=== PATIENT | female | born 1970 | race Two or more races ===

== ENCOUNTER 2023-06-15 18:23 | Inpatient (IN) | payer OTHER ==
[~2023-06-15] VITALS: Ht 152.4 cm; Wt 68.0 kg
[2023-06-15] MEDS ORDERED: METFORMIN (18:41)
[2023-06-15] MEDS ORDERED: ONDANSETRON 4 MG/2 ML VIAL ONE ×2 (19:28→19:55)
[2023-06-15 19:33] LABS: BASOPHILS # (AUTO) 0.2 K/UL (0.0-0.2); BASOPHILS % (AUTO) 2.3 % (0.0-2.0); EOSINOPHILS # (AUTO) 0.1 K/uL (0.0-0.7); EOSINOPHILS % (AUTO) 1.2 % (0.0-7.0); HEMATOCRIT 38.4 % (31.2-41.9); HEMOGLOBIN 13.1 g/dL (10.9-14.3); LYMPHOCYTES # (AUTO) 1.5 K/uL (0.8-4.8); LYMPHOCYTES % (AUTO) 20.8 % (20.5-51.5); MEAN CORPUSCULAR HEMOGLOBIN 30.3 uug (24.7-32.8); MEAN CORPUSCULAR HGB CONC 34 g/dL (32.3-35.6); MONOCYTES # (AUTO) 0.2 K/uL (0.1-1.30); MONOCYTES % (AUTO) 3.2 % (0.0-11.0); NEUTROPHILS # (AUTO) 5.3 K/uL (1.8-8.9); NEUTROPHILS % (AUTO) 72.5 % (38.5-71.5); PLATELET COUNT (AUTO) 260 K/uL (179-408); RED BLOOD CELL COUNT(AUTO) 4.32 MIL/uL (3.63-4.92); RED CELL DISTRIBUTION WIDTH 13.7 % (12.3-17.7); WHITE BLOOD COUNT (AUTO) 7.3 K/uL (3.8-11.8)
[2023-06-15 19:36] LABS: DIFFERENTIAL COMMENT 1
[2023-06-15 19:38] LABS: *BILIRUBIN,URIN NEGATIVE (NEGATIVE); *BLOOD, URINE NEGATIVE (NEGATIVE); *KETONES,URINE NEGATIVE (NEGATIVE); *PROTEIN,URINE NEGATIVE (NEGATIVE); *UROBILINOGEN,URINE 0.2 E.U./dl (NORMAL); LEUKOCYTE ESTERASE ,URINE NEGATIVE (NEGATIVE); NITRITE, URINE POSITIVE (NEGATIVE); PH,URINE 5.5 (5.0-8.0)
[2023-06-15 19:47] LABS: *CLARITY,URINE SLIGHTLY HAZY (CLEAR); *COLOR,URINE LIGHT YELLOW (YELLOW); UGLUCOSE 2+ (NEGATIVE)
[2023-06-15] MEDS: IV NORMAL SALINE 1000 ML BAG IV ONE (19:50)
[2023-06-15] MEDS: ONDANSETRON 4 MG/2 ML VIAL IV ONE ×2 (19:50→19:57)
[2023-06-15] MEDS ORDERED: CEFTRIAXONE /D5W 50ML IVPB **ER PYXIS IV ONE (19:51)
[2023-06-15] MEDS: CEFTRIAXONE 1 G in IV DEXTROSE 5% 50 ML IV ONE (19:54)
[2023-06-15 19:58] LABS: CALCIUM 8.8 mg/dL (8.5-10.1); CARBON DIOXIDE 25 mmol/L (21-32); CHLORIDE 102 mmol/L (98-107); CREATININE 0.8 mg/dL (0.6-1.3); GLUCOSE 254 mg/dL (74-106); POTASSIUM 4.5 mmol/L (3.5-5.1); SODIUM SERUM 138 mmol/L (136-145); UREA NITROGEN, BLOOD 18 mg/dL (7-18)
[2023-06-15 20:00] LABS: LACTIC ACID 2.8 mmol/L (0.4-2.0)
[2023-06-15 20:07] LABS: ALANINE AMINOTRANSFERASE 23 U/L (14-59); ALBUMIN 2.7 g/dL (3.4-5.0); ALKALINE PHOSPHATASE 190 U/L (50-136); ASPARTATE AMINOTRANSFERASE 11 U/L (15-37); BILIRUBIN,DIRECT 0.1 mg/dL (0.0-0.2); BILIRUBIN,TOTAL 0.4 mg/dL (0.2-1.0); NT-PRO BNP 160 pg/mL (0-125); TOTAL PROTEIN, SERUM 7.9 g/dL (6.4-8.2)
[2023-06-15 20:09] LABS: BACTERIA,URINE MODERATE /HPF (NONE SEEN); SQUAMOUS EPITHELIAL CELL,UR MODERATE /HPF (NONE SEEN); WBC,URINE 0-3 /HPF (0-3); YEAST,URINE FEW /HPF (NONE SEEN)
[2023-06-15] MEDS ORDERED: METOCLOPRAMIDE HCL 10 MG/2 ML VIAL ONE (20:09)
[2023-06-15] MEDS: METOCLOPRAMIDE HCL 10 MG/2 ML VIAL IV ONE (20:23)
[2023-06-15] MEDS ORDERED: ACETAMINOPHEN ES 500 MG TABLET ONE (20:53)
[2023-06-15] MEDS ORDERED: MORPHINE SULFATE 4 MG/1 ML DISP.SYRIN ONE (20:53)
[2023-06-15] MEDS: MORPHINE SULFATE 2 MG/1 ML DISP.SYRIN IV ONE (20:57)
[2023-06-15] MEDS: ACETAMINOPHEN 325 MG TABLET PO ONE (20:57)
[2023-06-15] MEDS ORDERED: ONDANSETRON 4 MG/2 ML VIAL IV PRN (22:30)
[2023-06-15] MEDS ORDERED: MAGNESIUM HYDROXIDE 30 ML LIQUID UDC PO PRN (22:30)
[2023-06-15] MEDS ORDERED: REMEDY ESSENTIAL ZINC PASTE 113 GM TP PRN (22:30)
[2023-06-15] MEDS ORDERED: DEXTROSE 50% 50 ML DISP.SYRIN IV PRN (22:30)
[2023-06-15] MEDS: IV NS 1000 ML 1,000 ML IV PRN (23:11)
[2023-06-16] VITALS: BP 107/52; TEMP 99.6; O2SAT 93
[2023-06-16 04:00] VITALS: BP 108/61; TEMP 97.9; O2SAT 98
[2023-06-16] MEDS: BLOOD SUGAR DIAGNOSTIC 1 EACH STRIP VI SCH (06:36)
[2023-06-16 07:17] LABS: BASOPHILS % (AUTO) 0.5 % (0.0-2.0); EOSINOPHILS # (AUTO) 0.1 K/uL (0.0-0.7); EOSINOPHILS % (AUTO) 0.7 % (0.0-7.0); HEMATOCRIT 31.7 % (31.2-41.9); HEMOGLOBIN 10.9 g/dL (10.9-14.3); LYMPHOCYTES # (AUTO) 2.3 K/uL (0.8-4.8); MEAN CORPUSCULAR HEMOGLOBIN 30.4 uug (24.7-32.8); MEAN CORPUSCULAR HGB CONC 34 g/dL (32.3-35.6); MEAN CORPUSCULAR VOLUME 88.4 fL (75.5-95.3); MONOCYTES # (AUTO) 0.6 K/uL (0.1-1.30); MONOCYTES % (AUTO) 7.7 % (0.0-11.0); NEUTROPHILS # (AUTO) 5.4 K/uL (1.8-8.9); NEUTROPHILS % (AUTO) 64.1 % (38.5-71.5); PLATELET COUNT (AUTO) 232 K/uL (179-408); RED BLOOD CELL COUNT(AUTO) 3.59 MIL/uL (3.63-4.92); RED CELL DISTRIBUTION WIDTH 13.6 % (12.3-17.7); WHITE BLOOD COUNT (AUTO) 8.4 K/uL (3.8-11.8)
[2023-06-16 07:31] LABS: CALCIUM 7.6 mg/dL (8.5-10.1); CREATININE 0.5 mg/dL (0.6-1.3); MAGNESIUM 1.5 mg/dL (1.8-2.4); POTASSIUM 3.3 mmol/L (3.5-5.1)
[2023-06-16 07:36] LABS: DIFFERENTIAL COMMENT 1
[2023-06-16 07:40] VITALS: BP 115/54; TEMP 98.6; O2SAT 94
[2023-06-16] MEDS ORDERED: CEFTRIAXONE 1 G in IV DEXTROSE 5% 50 ML IV SCH (07:45)
[2023-06-16] MEDS: POTASSIUM CHLORIDE 20 MEQ TAB.PRT.SR PO ONE (10:15)
[2023-06-16] MEDS: ACETAMINOPHEN 325 MG TABLET PO PRN (10:16)
[2023-06-16] MEDS: MAGNESIUM OXIDE 400 MG TABLET PO ONE (10:16)
[2023-06-16] MEDS: INSULIN REGULAR, HUMAN 300 UNIT/3 ML VIAL SQ PRN (12:03)
[2023-06-16 16:22] VITALS: BP 104/53; TEMP 98.6; O2SAT 95
[2023-06-16 19:54] VITALS: BP 105/49; TEMP 98.9; O2SAT 98
[2023-06-16] MEDS: CEFTRIAXONE 1 G in IV DEXTROSE 5% 50 ML IV SCH (19:58)
[2023-06-17] VITALS: BP 110/59; TEMP 99.4; O2SAT 98
[2023-06-17 05:00] VITALS: BP 113/60; TEMP 98.4; O2SAT 97
[2023-06-17 11:35] VITALS: BP 110/51; TEMP 98.1; O2SAT 98
[2023-06-17] MEDS ORDERED: SITA1TAB6 PO (14:33)
[2023-06-17] MEDS ORDERED: INSU300I SQ (14:33)
[2023-06-17] MEDS ORDERED: EMPA25TA PO (14:33)
[2023-06-17] MEDS ORDERED: INSU100I26 SQ (14:51)
[2023-06-17] MEDS ORDERED: INSU100I34 SQ (15:01)
[2023-06-17 15:54] VITALS: BP 106/66; TEMP 98; O2SAT 97
[2023-06-18 05:07] VITALS: BP 130/68; TEMP 98.2; O2SAT 100
[2023-06-18 07:14] LABS: CALCIUM 8.2 mg/dL (8.5-10.1); CREATININE 0.7 mg/dL (0.6-1.3); POTASSIUM 4.2 mmol/L (3.5-5.1)
[2023-06-18] MEDS: EMPAGLIFLOZIN 25 MG TABLET PO SCH (09:37)
[2023-06-18 10:26] LABS: DIFFERENTIAL COMMENT 0; HEMOGLOBIN 11.3 g/dL (10.9-14.3); WHITE BLOOD COUNT (AUTO) 5.3 K/uL (3.8-11.8)
[2023-06-18 10:49] LABS: BASOPHILS % (AUTO) 0.5 % (0.0-2.0); EOSINOPHILS # (AUTO) 0.1 K/uL (0.0-0.7); EOSINOPHILS % (AUTO) 2.4 % (0.0-7.0); HEMATOCRIT 33.1 % (31.2-41.9); LYMPHOCYTES # (AUTO) 2.5 K/uL (0.8-4.8); LYMPHOCYTES % (AUTO) 47.6 % (20.5-51.5); MEAN CORPUSCULAR HEMOGLOBIN 30.2 uug (24.7-32.8); MEAN CORPUSCULAR HGB CONC 34 g/dL (32.3-35.6); MEAN CORPUSCULAR VOLUME 88.8 fL (75.5-95.3); MONOCYTES # (AUTO) 0.4 K/uL (0.1-1.30); MONOCYTES % (AUTO) 7.9 % (0.0-11.0); NEUTROPHILS # (AUTO) 2.2 K/uL (1.8-8.9); NEUTROPHILS % (AUTO) 41.6 % (38.5-71.5); PLATELET COUNT (AUTO) 289 K/uL (179-408); RED BLOOD CELL COUNT(AUTO) 3.73 MIL/uL (3.63-4.92); RED CELL DISTRIBUTION WIDTH 13.3 % (12.3-17.7)
[2023-06-18 11:33] VITALS: BP 126/63; TEMP 97.9; O2SAT 98
[2023-06-18 15:43] VITALS: BP 130/58; TEMP 97.6; O2SAT 98
[2023-06-18 20:00] VITALS: BP 121/65; TEMP 98.8; O2SAT 95
[2023-06-19 06:00] VITALS: BP 131/69; TEMP 98; O2SAT 97
[2023-06-19 07:13] LABS: BASOPHILS % (AUTO) 0.5 % (0.0-2.0); EOSINOPHILS # (AUTO) 0.2 K/uL (0.0-0.7); EOSINOPHILS % (AUTO) 2.7 % (0.0-7.0); HEMATOCRIT 35.5 % (31.2-41.9); HEMOGLOBIN 12.3 g/dL (10.9-14.3); LYMPHOCYTES # (AUTO) 2.4 K/uL (0.8-4.8); MEAN CORPUSCULAR HEMOGLOBIN 30.2 uug (24.7-32.8); MEAN CORPUSCULAR HGB CONC 35 g/dL (32.3-35.6); MEAN CORPUSCULAR VOLUME 87.6 fL (75.5-95.3); MONOCYTES # (AUTO) 0.3 K/uL (0.1-1.30); MONOCYTES % (AUTO) 5.9 % (0.0-11.0); NEUTROPHILS # (AUTO) 2.9 K/uL (1.8-8.9); NEUTROPHILS % (AUTO) 49.9 % (38.5-71.5); PLATELET COUNT (AUTO) 368 K/uL (179-408); RED BLOOD CELL COUNT(AUTO) 4.06 MIL/uL (3.63-4.92); RED CELL DISTRIBUTION WIDTH 13.4 % (12.3-17.7); WHITE BLOOD COUNT (AUTO) 5.8 K/uL (3.8-11.8)
[2023-06-19 07:22] LABS: DIFFERENTIAL COMMENT 1
[2023-06-19 10:30] VITALS: BP_SYST 138; BP_SYST 142; BP_SYST 148; BP_DIAS 74; BP_DIAS 76; BP_DIAS 92
[2023-06-19 11:46] VITALS: BP 127/63; TEMP 98.2; O2SAT 98
[2023-06-19] MEDS ORDERED: DEXTROSE 50% 50 ML DISP.SYRIN IV PRN (12:15)
[2023-06-19] MEDS: INSULIN REGULAR, HUMAN 300 UNIT/3 ML VIAL SQ PRN (12:24)
[2023-06-19] MEDS: BLOOD SUGAR DIAGNOSTIC 1 EACH STRIP VI SCH (16:30)
[2023-06-19 16:40] VITALS: BP 121/73; TEMP 97.8; O2SAT 97
[2023-06-19 20:00] VITALS: BP 105/69; TEMP 98; O2SAT 96
[2023-06-19] MEDS: SULFAMETH/TRIMETH 800/160 MG TABLET PO SCH (20:07)
[2023-06-19] MEDS: INSULIN REGULAR, HUMAN 300 UNITS/3 ML VIAL SQ PRN (20:20)
[2023-06-19 21:02] VITALS: BP_SYST 105; BP_SYST 108; BP_SYST 117; BP_DIAS 63; BP_DIAS 69; BP_DIAS 75; O2SAT 96
[2023-06-20 06:00] VITALS: BP 130/68; TEMP 98.6; O2SAT 98
[2023-06-20 07:40] LABS: BASOPHILS % (AUTO) 0.5 % (0.0-2.0); EOSINOPHILS # (AUTO) 0.1 K/uL (0.0-0.7); EOSINOPHILS % (AUTO) 2.4 % (0.0-7.0); HEMATOCRIT 36.8 % (31.2-41.9); HEMOGLOBIN 12.7 g/dL (10.9-14.3); LYMPHOCYTES # (AUTO) 2.7 K/uL (0.8-4.8); LYMPHOCYTES % (AUTO) 45.2 % (20.5-51.5); MEAN CORPUSCULAR HEMOGLOBIN 30.3 uug (24.7-32.8); MEAN CORPUSCULAR HGB CONC 35 g/dL (32.3-35.6); MEAN CORPUSCULAR VOLUME 87.8 fL (75.5-95.3); MONOCYTES # (AUTO) 0.4 K/uL (0.1-1.30); NEUTROPHILS # (AUTO) 2.7 K/uL (1.8-8.9); NEUTROPHILS % (AUTO) 44.9 % (38.5-71.5); PLATELET COUNT (AUTO) 423 K/uL (179-408); RED BLOOD CELL COUNT(AUTO) 4.19 MIL/uL (3.63-4.92); RED CELL DISTRIBUTION WIDTH 13.6 % (12.3-17.7)
[2023-06-20 07:46] LABS: DIFFERENTIAL COMMENT 1
[2023-06-20 07:55] LABS: CALCIUM 9.4 mg/dL (8.5-10.1); CREATININE 0.7 mg/dL (0.6-1.3); MAGNESIUM 1.7 mg/dL (1.8-2.4); PHOSPHOROUS 4.2 mg/dL (2.5-4.9); POTASSIUM 4.1 mmol/L (3.5-5.1)
[2023-06-20] MEDS ORDERED: Sulfameth/Trimeth 800/160 Mg PO (10:34)
[2023-06-20] MEDS ORDERED: SULF1TAB48 PO (10:35)
[2023-06-20] MEDS: MAGNESIUM OXIDE 400 MG TABLET PO ONE (11:25)
== END 2023-06-20 12:45 | disposition home or self-care (01) | DRG 720 ==
LOC: ER 18:25 → TELE3 22:53 → MEDSURG3 06-17 13:33
PROVIDERS: ADMIT Nurse Practitioner Acute Care; ATTEND Nurse Practitioner Acute Care
DX: A41.50 Gram-negative sepsis, unspecified (principal); E87.20 Acidosis, unspecified; E44.0 Moderate protein-calorie malnutrition; E88.09 Other disorders of plasma-protein metabolism, not elsewhere classified; S06.0XAA Concussion with loss of consciousness status unknown, initial encounter; E83.51 Hypocalcemia; N13.6 Pyonephrosis; B96.89 Other specified bacterial agents as the cause of diseases classified elsewhere; R40.2362 Coma scale, best motor response, obeys commands, at arrival to emergency department; R40.2142 Coma scale, eyes open, spontaneous, at arrival to emergency department; R40.2252 Coma scale, best verbal response, oriented, at arrival to emergency department; W18.30XA Fall on same level, unspecified, initial encounter; Y92.009 Unspecified place in unspecified non-institutional (private) residence as the place of occurrence of the external cause; M77.32 Calcaneal spur, left foot; E11.9 Type 2 diabetes mellitus without complications; Z79.84 Long term (current) use of oral hypoglycemic drugs; I51.7 Cardiomegaly; Z87.440 Personal history of urinary (tract) infections
CPT/HCPCS: 36415; 70450; 71045; 73620; 83605; 83735; 84100; 84484; 85025; 85730; 87040; 87077; 93005; 93307; 97161; A6213; A9150; G0378; J0696; J1815; J2270; J2405; J2765; J7040